=== PATIENT | male | born 1940 | race Caucasian/White ===

== ENCOUNTER 2019-11-08 10:10 | Inpatient (IN) | payer MEDICARE, OTHER ==
[2019-11-01 09:17] LABS: HEMATOCRIT 43.7 % (42.0-52.0); HEMOGLOBIN 15.1 gm/dL (14.0-18.0); MCH 30.9 pg (26.0-34.0); MCHC 34.5 g/dL (28.0-37.0); MCV 89.6 fL (80.0-100.0); MPV 7.7 fl. (7.2-11.1); RBC 4.88 mil/uL (4.50-6.00); RDW-CV 14.1 % (10.5-14.5)
[2019-11-01 09:21] LABS: PROTIME 10.6 Seconds (9.20-11.50)
[2019-11-01 09:27] LABS: ALBUMIN 4.1 g/dL (3.4-5.0); CALCIUM 8.8 mg/dL (8.5-10.1); POTASSIUM 4.2 mmol/L (3.5-5.1); TOTAL BILIRUBIN 0.5 mg/dL (<0.1-1.0); TOTAL PROTEIN 7.3 g/dL (6.4-8.2)
--- NOTE | 2019-11-01 12:08 | EKG ---
[place] [address] ELECTROCARDIOGRAM REPORT Name: KAROLINA DEWEY Room: PRE IN [facility]#: [id number] Admission: Attend Phys: Haris Little Discharge: Date of : 36 Date of Service: 11/01/19 1109 Report #: [id number] THIS REPORT FOR: //name// [facility] Test Date: 2019-11-01 Test Time: 11:09:23 Pat Name: KAROLINA DEWEY Department: Room: Gender: Video And Sound Recorder: : 1940 Requested By: Mick Neely Order Number: [id number] Kizzy MD: Vern Pace Measurements Intervals [place] Rate: 83 P: 40 AR: 168 QRS: -41 QRSD: 111 T: 73 QT: 396 QTc: 466 Interpretive Statements Sinus rhythm Ventricular premature complex Left ventricular hypertrophy No previous ECG available for comparison Electronically Signed On 11-01-2019 12:08:22 CDT by Vern Pace [email or web address] <ELECTRONICALLY SIGNED> By: Vern Pace MD, [facility] 11/01/19 1208 1109 08 Vern Pace MD, FACC /EPI
[2019-11-01 15:48] LABS: URINE BILIRUBIN NEGATIVE (Negative); URINE BLOOD NEGATIVE (Negative); URINE CLARITY CLEAR; URINE COLOR YELLOW; URINE GLUCOSE-RANDOM 1+ (Negative); URINE KETONES NEGATIVE (Negative); URINE LEUKOCYTES-REFLEX NEGATIVE (Negative); URINE NITRITE-REFLEX NEGATIVE (Negative); URINE PROTEIN TRACE (Negative); URINE SPECIFIC GRAVITY 1.025 (1.005-1.030); URINE UROBILINOGEN 0.2 E.U./dl (0.2-1.0)
[~2019-11-08] VITALS: Ht 188 cm; Wt 83.9 kg
[~2019-11-08 10:10] MED LIST: AMARYL4 MG PO; LEVO-T100 MCG PO; METFORMIN HCL500 M3 PO; NEURONTIN600 MG PO; OMEPRAZOLE40 MG PO; SIMVASTATIN40 MG PO; ULTRAM 50MG TAB50 MG PO
[2019-11-08 12:20] VITALS: BP 174/97
--- NOTE | 2019-11-08 17:38 | NUR ---
PATIENT TO THE ROOM FROM PACU APPROX. 1605 THIS EVENING. HE WAS AND STILL IS SLEEPING. HE IS VERY DROWSY FROM MEDICATIONS DURING AND AFTER SURGERY. I HAVE NOT ADMINISTERED ANYTHING FOR PAIN. HE HAS FLUIDS INFUSING INTO THE LEFT FA ORDERED. SITE IS HEALTHY. HE WAKES EASILY BUT FALLS RIGHT BACK TO SLEEP. FAMILY AT THE BEDSIDE. THE DRESSING TO THE RIGHT HIP IS CLEAN DRY AND INTACT AND ICE PACK IS ON THE AREA. CMS IS POSITIVE TO THE RIGHT EXTREMITY. HE DOES HAVE FOOT PUMPS ON BILATERALLY AND TEDS WELL. NO COMPLAINTS THIS EVENING. HE WAS TOO TIRED TO EAT MUCH BUT WE DID WAKE HIM AND GIVE HIM A FEW BITES. NO DISTRESS NOTED. FALL PRECAUTIONS ARE BEING MAINTAINED.
--- NOTE | 2019-11-08 17:42 | NUR ---
PATIENT DID HAVE A BLOOD SUGAR OF 206 AT 1600 AND WAS GIVEN INSULIN IN THE PACU PRIOR TO COMING TO THE FLOOR. THE HEMOVAC IN NOT PUTTING ANYTHING OUT AT THIS TIME.
[2019-11-08 19:42] VITALS: BP 155/96
[2019-11-09] VITALS: BP 140/68
[2019-11-09 04:00] VITALS: BP 165/88
--- NOTE | 2019-11-09 04:35 | NUR ---
PT A&OX4, PT NON COMPLIANT WITH OXYGEN-REFUSED NASAL CANNUAL - O2 SAT 95-96% ON ROOM AIR, VSS, IV FLUIDS INFUSING ORDERED, HEMO VAC IN PLACE. PAIN MEDS REQUESTED AND GIVEN ORDERED. ASSESSMENTS AND HOURLY ROUNDINGS COMPLETE. WILL CONTINUE WITH PLAN OF CARE.
[2019-11-09 05:00] LABS: HEMATOCRIT 37.3 % (42.0-52.0); HEMOGLOBIN 12.6 gm/dL (14.0-18.0)
[2019-11-09 08:00] VITALS: BP 155/89
--- NOTE | 2019-11-09 10:00 | NUR ---
SPOKE WITH PT.AND IN ROOM. HAD JUST FINISHED OT. PT.LIVES HOME WITH . THEY LIVE IN A RAISED RANCH. HE NORMALLY STAYS IN BASEMENT DURING THE DAY. HAS A RECLINER, [employer]. [place] '. TO GET TO THE BASEMENT,HOWEVER THERE ARE ALOT OF STAIRS. HE ALSO HAS TROUBLE WITH VESTIBULAR VERTIGO. THEY WOULD LIKE TO GO TO INPT.REHAB IF QUALIFIES. CONSULT PLACED BY NURSING WITH DR.SUDHOLTS STERLING. PT.HAS A FWW . IS NORMALLY INDEPENDENT AT HOME. DISCUSSED REHAB. ALSO DISCUSSED SNF. SHE WOULD LIKE [facility]IBLY [facility] IF CANT GO TO REHAB. CM CALLED IN [place] TO [facility]. WILL CALL BACK FOR COPAY. 1620-[facility] CALLED AND SAID CALLED AND WOULD LIKE A REFERRAL FAXED TO THEM. CM WILL FAX IN AM DUE TO LATENESS OF THE HR.
[2019-11-09 11:45] VITALS: BP 142/56
[2019-11-09 16:00] VITALS: BP 170/95
--- NOTE | 2019-11-09 16:03 | NUR ---
PATIENT UP TO CHAIR WITH THERAPY THIS SHIFT. GOOD APPETITE. DR. MAKI NOTIFIED OF ELEVATED BLOOD SUAGRS, AT THIS TIME NO NEW ORDERS RECEIVED. VOIDING PER URINAL. HEMOVAC DC'D PER PROTOCOL THIS AM. PATIENT HAVING CONTINOUS HICCUPS, DR. MAKI NOTIFIED AND MEDICATION ORDERS RECEIVED. IV SL, TOELRATING PO AND ABX COMPLETE.
[2019-11-09 20:00] VITALS: BP 174/88
[2019-11-10 04:02] LABS: HEMATOCRIT 36.3 % (42.0-52.0); HEMOGLOBIN 12.6 gm/dL (14.0-18.0)
--- NOTE | 2019-11-10 04:44 | NUR ---
PT A&OX4, ON ROOM AIR, PT UP WITH ASSIST TO BSC, PT BP 174/88 - PT EDUCATED ON IMPORTANCE OF CONTROLING BP - PT SAID HE WOULD REFUSE AND BP MEDS AT THIS TIME. PAIN MED REQUESTED AND GIVEN ORDERED. ACCU CHECKS COMPLETE. PT SLEEPING WELL. HOURLY ROUNDINGS COMPLETE. WILL CONTINUE TO MONITOR.
[2019-11-10 08:10] VITALS: BP 173/95
--- NOTE | 2019-11-10 11:47 | NUR ---
[facility] CONFIRMED THAT REHAB CAN ACCEPT PT.TODAY . NOTIFIED DR.DE BELEN TURNER AND . WAS VERY HAPPY THAT HE CAN GO UP TO OUR REHAB. PT.WAS SLEEPING DURING CONVERSATION WITH .
[2019-11-10 11:53] VITALS: BP 173/95
[2019-11-10] MEDS ORDERED: XARELTO10 MG PO (13:06)
[2019-11-10] MEDS ORDERED: PERCOCET 5-3251 EACH PO (13:06)
[2019-11-10] MEDS ORDERED: HYDROCODON-ACE1 EAC7 PO (13:37)
[2019-11-10] MEDS ORDERED: CELEBREX 200 M200 M1 PO (13:37)
[2019-11-10 15:00] VITALS: BP 106/54
[2019-11-10 15:06] LABS: URINE BILIRUBIN NEGATIVE (Negative); URINE BLOOD 3+ (Negative); URINE CLARITY CLEAR; URINE COLOR YELLOW; URINE GLUCOSE-RANDOM 2+ (Negative); URINE KETONES NEGATIVE (Negative); URINE LEUKOCYTES-REFLEX NEGATIVE (Negative); URINE NITRITE-REFLEX NEGATIVE (Negative); URINE PROTEIN NEGATIVE (Negative); URINE SPECIFIC GRAVITY 1.015 (1.005-1.030); URINE UROBILINOGEN 0.2 E.U./dl (0.2-1.0)
[2019-11-10 15:15] LABS: HYALINE CASTS 0-3 Few /LPF (None Seen)
[2019-11-10 15:16] LABS: MUCUS None Seen strn/LPF (None Seen); SQUAMOUS NONE SEEN /LPF (0-3); URINE RBC 3-10 Few /HPF (0-2)
[2019-11-10 15:17] LABS: CRYSTALS None Seen /LPF (None Seen)
[2019-11-10 15:18] LABS: URINE WBC-REFLEX None Seen /HPF (0-5)
[2019-11-10 15:19] LABS: BACTERIA-REFLEX 1-9 Few /HPF (None Seen)
--- NOTE | 2019-11-10 15:40 | NUR ---
PATIENT TRANSFERED TO INPATIENT REHAB. REPORT GIVEN TO ANGI. COPY OF CHART AND DISCHARGE ORDERS GIVEN. IV LEFT IN FOR TRANSFER. PATIENT BELONGINGS PACKED AND TAKEN TO ROOM 322. PATIENT IS AWARE OF TRANSFER. PATIENT DENIES ANY FURTHER NEEDS.
[2019-11-11 02:06] LABS: GLYCOHEMOGLOBIN (HGB A1C) 6.5 % (4.8-5.6)
--- NOTE | 2019-11-11 08:15 | OP ---
[facility] [address] [place] [address] OPERATIVE REPORT Name: KAROLINA DEWEY Room: [address] M.R.#: [id number] Admission: 11/08/19 Attend Phys: Padilla Elise Discharge: 11/10/19 Date of : 36 Report #: [id number] THIS REPORT FOR: //name// cc: Weston Valiente MD, Matthew W. MD ~ THIS REPORT FOR: //name// CC: Weston Little DATE OF SERVICE: 11/08/2019 PREOPERATIVE DIAGNOSIS: Right hip osteoarthritis. POSTOPERATIVE DIAGNOSIS: Right hip osteoarthritis. PROCEDURE: Right total hip arthroplasty. SURGEON: Mick Neely II, DO. PROTECTIVE SIGNAL INSTALLER HELPER: ROCKY Landers. ANESTHESIA: General endotracheal. ESTIMATED BLOOD LOSS: 200 mL. ANTIBIOTICS: Ancef preoperatively. DRAINS: Medium Hemovac. COMPLICATIONS: None. CONDITION OF THE PATIENT: Stable to recovery room. IMPLANTS: Listed in operative record and progress note. BRIEF HISTORY: The patient was seen in the preoperative area. Preoperative H and P was performed. Site was marked, questions were answered. Risks and benefits were discussed with the patient in detail about surgery. The patient wished to proceed, assuming all risks. OPERATIVE PROCEDURE: The patient was taken to the operative suite and placed supine on the operative table, given appropriate anesthesia. The patient's operative hip was placed in the [place] table leg [place] and sterilely prepped and draped in supine position. Surgery began by longitudinal incision over the [facility] [address] [place] [address] OPERATIVE REPORT Name: KAROLINA DEWEY Room: [address] M.R.#: [id number] Admission: 11/08/19 Attend Phys: Padilla Elise Discharge: 11/10/19 Date of : 36 Report #: [id number] anterior portion of the hip. This was carried down to the subcutaneous tissues. A small jeannie was made in the tensor fascia and it was then split along its fibers and retracted laterally. An H capsulotomy was then performed and careful hemostasis was maintained with electrocautery and Aquamantys. The head and neck cutting alignment guide was then checked with fluoroscopic guidance. Appropriate cut was made of the head and neck and this was removed. Attention was turned to the acetabulum. Excess labrum was removed. It was then reamed in sequential fashion up to appropriate size, which showed excellent bleeding bone and excellent position on fluoroscopic guidance. The acetabular cup was then malleted into position and secured with cancellous screws. The metal liner was then applied. The patient's leg was then rotated and extended on [place] table leg [place] to expose the femur. It was then broached in sequential fashion up to appropriate size. The appropriate neck was then trialed with appropriate head length, which showed to have excellent fit and fill and excellent stability of the hip through all range of motion. These trials were then removed. The final stem was then malleted into position and the final head and neck was then malleted into position. It was reduced in appropriate fashion, checked with C-arm for appropriate leg length and showed to have excellent leg length throughout the exam without evidence of dislocation upon range of motion and shuck testing. Wound was then copiously irrigated. Hemostasis was maintained with electrocautery and Aquamantys. Pain cocktail was injected. PRP gel was sprayed throughout the internal aspects of the hip and drain was activated. The H capsulotomy was then closed utilizing #1 Vicryl in veqijd-li-nquih fashion. Tensor fascia was closed with #1 Vicryl in running fashion. Skin was closed with 2-0 Vicryl and a running 3-0 Monocryl, with Dermabond and sterile dressing applied. The patient transported to recovery room in stable condition. Counts were correct throughout the procedure. <ELECTRONICALLY SIGNED> By: Mick Neely II, DO 11/11/19 0815 2225 [id number] Neely II, DO /nt
== END 2019-11-10 15:44 | DRG 470 ==
LOC: M.TBA 10:10 → M.ORTHSURG 10:10 → M.PRE 12:49 → M.ORTHSURG 15:57 → M.PRE 20:28 → M.ORTHSURG 11-10 15:44
PROVIDERS: Family Medicine; Orthopaedic Surgery; ADMIT Internal Medicine; ATTEND Internal Medicine
PROC: 0SR90JZ Replacement of Right Hip Joint with Synthetic Substitute, Open Approach (ICD-10-PCS; principal; 2019-11-08)
DX: M16.11 Unilateral primary osteoarthritis, right hip (principal); N18.4 Chronic kidney disease, stage 4 (severe); E78.00 Pure hypercholesterolemia, unspecified; E03.9 Hypothyroidism, unspecified; K21.9 Gastro-esophageal reflux disease without esophagitis; F17.210 Nicotine dependence, cigarettes, uncomplicated; F17.220 Nicotine dependence, chewing tobacco, uncomplicated; R25.1 Tremor, unspecified; E11.22 Type 2 diabetes mellitus with diabetic chronic kidney disease; I12.9 Hypertensive chronic kidney disease with stage 1 through stage 4 chronic kidney disease, or unspecified chronic kidney disease; H81.8X1 Other disorders of vestibular function, right ear; Z79.899 Other long term (current) drug therapy

== ENCOUNTER 2019-11-10 13:47 | Inpatient (IN) | payer MEDICARE, OTHER ==
[~2019-11-10] VITALS: Ht 188 cm; Wt 84.3 kg
[~2019-11-10 13:47] MED LIST changes: +CELEBREX 200 M200 M1 PO; +HYDROCODON-ACE1 EAC7 PO; +PERCOCET 5-3251 EACH PO; +XARELTO10 MG PO
[2019-11-10 20:00] VITALS: BP 107/58
[2019-11-11 05:11] LABS: CALCIUM 8.3 mg/dL (8.5-10.1); CREATININE 2.6 mg/dL (0.6-1.3); POTASSIUM 3.8 mmol/L (3.5-5.1)
[2019-11-11 05:24] LABS: HEMATOCRIT 33.4 % (42.0-52.0); HEMOGLOBIN 11.6 gm/dL (14.0-18.0); MCH 31.3 pg (26.0-34.0); MCHC 34.7 g/dL (28.0-37.0); MCV 90.2 fL (80.0-100.0); MPV 8.8 fl. (7.2-11.1); RBC 3.7 mil/uL (4.50-6.00); RDW-CV 14.5 % (10.5-14.5); WBC 8.3 thou/uL (4.0-11.0)
[2019-11-11 08:00] VITALS: BP 152/79
[2019-11-11 20:00] VITALS: BP 144/61
[2019-11-12 08:00] VITALS: BP 146/78
[2019-11-12 19:30] VITALS: BP 145/74
[2019-11-13 08:00] VITALS: BP 154/73
[2019-11-13 11:46] LABS: ALBUMIN 2.5 g/dL (3.4-5.0); CALCIUM 7.9 mg/dL (8.5-10.1); CREATININE 2.1 mg/dL (0.6-1.3); MAGNESIUM 1.9 mg/dL (1.8-2.4); PHOSPHORUS* 2.3 mg/dL (2.5-4.9); POTASSIUM 4.4 mmol/L (3.5-5.1)
[2019-11-13 20:00] VITALS: BP 154/74
[2019-11-14 05:41] LABS: ALBUMIN 2.6 g/dL (3.4-5.0); CALCIUM 8.1 mg/dL (8.5-10.1); PHOSPHORUS* 2.4 mg/dL (2.5-4.9)
[2019-11-14 08:00] VITALS: BP 148/75
[2019-11-14 19:15] VITALS: BP 130/74
[2019-11-15 08:03] VITALS: BP 160/78
[2019-11-15 20:03] VITALS: BP 133/80
[2019-11-16 07:54] VITALS: BP 163/82
[2019-11-16 18:18] VITALS: BP 121/63
[2019-11-16 19:44] VITALS: BP 151/75
[2019-11-17 08:00] VITALS: BP 140/82
[2019-11-17 20:00] VITALS: BP 138/79
[2019-11-18 07:55] VITALS: BP 161/80
[2019-11-18] MEDS ORDERED: AMARYL4 MG PO (11:43)
[2019-11-18] MEDS ORDERED: GLUCOTROL XL2.5 MG PO (11:43)
[2019-11-18 12:38] VITALS: BP 161/80
[2019-11-18 12:41] VITALS: BP 161/80
[2019-11-18 12:42] VITALS: BP 161/80
[2019-11-18 13:33] VITALS: BP 161/80
[2019-11-18 14:03] VITALS: BP 161/80
== END 2019-11-18 13:30 | disposition home or self-care (01) | DRG 554 ==
LOC: M.REH 13:47
PROVIDERS: Family Medicine; ADMIT Physical Medicine & Rehabilitation; ATTEND Physical Medicine & Rehabilitation
DX: M16.11 Unilateral primary osteoarthritis, right hip (principal); N18.4 Chronic kidney disease, stage 4 (severe); R53.81 Other malaise; E03.9 Hypothyroidism, unspecified; I12.9 Hypertensive chronic kidney disease with stage 1 through stage 4 chronic kidney disease, or unspecified chronic kidney disease; E11.22 Type 2 diabetes mellitus with diabetic chronic kidney disease; K21.9 Gastro-esophageal reflux disease without esophagitis; G89.29 Other chronic pain; M54.9 Dorsalgia, unspecified; R25.1 Tremor, unspecified; E78.2 Mixed hyperlipidemia; Z79.899 Other long term (current) drug therapy; Z47.1 Aftercare following joint replacement surgery